=== PATIENT | male | born 1975 | race Caucasian/White ===

== ENCOUNTER 2016-12-25 22:23 | Emergency (ER) | payer SELFPAY ==
[2016-12-25 23:49] LABS: BASO % 0.6 % (0-6); EOS % 2.2 % (0-6); HEMATOCRIT 48.9 % (42.0-52.0); HEMOGLOBIN 16.4 gm/dl (14.0-18.0); LYMPH % 32.8 % (16-45); MEAN CELL VOLUME 87.3 fl (81-97); MEAN CORPUSCULAR HEMOGLOBIN 29.3 pg (27-33); MEAN CORPUSCULAR HGB CONC 33.5 g/dl (32-36); MONO % 9.4 % (0-9); PLATELET COUNT 244 K/uL (130-400); RED CELL DISTRIBUTION WIDTH 13.5 % (11.5-14.5); URINE APPEARANCE CLEAR; URINE BILIRUBIN NEGATIVE (NEGATIVE); URINE BLOOD NEGATIVE (NEGATIVE); URINE COLOR YELLOW; URINE GLUCOSE (UA) NEGATIVE (NEGATIVE); URINE KETONE NEGATIVE (NEGATIVE); URINE LEUKOCYTE ESTERASE NEGATIVE (NEGATIVE); URINE NITRITE NEGATIVE (NEGATIVE); URINE PROTEIN NEGATIVE (NEGATIVE); URINE UROBILINOGEN 0.2 E.U./dL (0.20 - 1.00); WHITE BLOOD COUNT W/O DIFF 6.9 K/uL (4.2-12.2)
[2016-12-25 23:56] LABS: AMPHETAMINE SCREEN URINE NOT DETECTED; BARBITURATE SCREEN URINE NOT DETECTED; BENZODIAZEPINE SCREEN URINE NOT DETECTED; COCAINE SCREEN URINE NOT DETECTED; METHADONE SCREEN URINE NOT DETECTED; METHAMPHETAMINE SCREEN NOT DETECTED; OPIATE SCREEN URINE DETECTED; OXYCODONE SCREEN URINE NOT DETECTED; PHENCYCLIDINE SCREEN URINE NOT DETECTED; PROPOXYPHENE SCREEN URINE NOT DETECTED; THC SCREEN URINE NOT DETECTED; TRICYCLIC ANTIDEPRESSANT SCRN NOT DETECTED
[2016-12-25 23:59] LABS: ANION GAP 18.7 (7-16); BLOOD UREA NITROGEN 9 mg/dL (9-20); CARBON DIOXIDE 20.3 mmol/L (22-30); CREATININE 0.8 mg/dL (0.66-1.25); EST GLOMERULAR FILTRATION RATE > 60 ml/min; GLUCOSE,RANDOM 99 mg/dL (70-110)
--- NOTE | 2016-12-26 00:58 | Emergency Department Record ---
History of Present Illness - General Chief Complaint: Headache Migraine Stated Complaint: HEADACHE Time Seen by Provider: 12/25/16 23:03 Source: Patient, Family Mode of Arrival: Ambulatory Limitations: No limitations - History of Present Illness Initial Comments: pt was brought in by because he has been having headaches and became depressed tonight after having an argument with his and drinking 12 beers. was concerned an convinced pt to come in. pt denies suicidality. MD Complaint: Headache Onset/Timin -: Week(s) Onset Description: Sudden Severity: Moderate Severity scale (1-10): 1 Quality: Other Consistency: Constant Improves With: Nothing Worsens With: None Context: Other Other Symptoms: Other Treatments Prior to Arrival: None - Related Data Home Medications Medication Instructions Recorded Confirmed Last Taken Gabapentin [Gabapentin] 300 mg PO QHS 12/25/16 12/25/16 Unknown Lamotrigine [Lamotrigine] 100 mg PO BID 12/25/16 12/25/16 Unknown Allergies Allergy/AdvReac Type Severity Reaction Status Date / Time cyclobenzaprine HCl Allergy HYPERSENSIT Verified 08/14/15 10:45 [From [employer]] [employer] Travel Screening - Travel/Exposure Within Last 30 Days Have you traveled within the last 30 days?: No - Travel/Exposure Within Last Year Have you traveled outside the [place] in the last year?: No - Additonal Travel Details Have you been exposed to anyone with a communicable illness?: No - Travel Symptoms Symptom Screening: None Review of Systems Reviewed: No additional complaints except as noted below Constitutional: Reports: As per HPI. Denies: Chills, Fever, Malaise, Night sweats, Weakness, Weight change Eyes: Reports: As per HPI. Denies: Eye discharge, Eye pain, Photophobia, Vision change ENT: Reports: As per HPI. Denies: Congestion, Dental pain, Ear pain, Epistaxis , Hearing loss, Throat pain Respiratory: Reports: As per HPI. Denies: Cough, Dyspnea, Hemoptysis, Stridor, Wheezes Cardiovascular: Reports: As per HPI. Denies: Arrhythmia, Chest pain, Dyspnea on exertion, Edema, Murmurs, Orthopnea, Palpitations, Paroxysmal nocturnal dyspnea, Rheumatic Fever, Syncope Endocrine: Reports: As per HPI. Denies: Fatigue, Heat or cold intolerance, Polydipsia, Polyuria Gastrointestinal: Reports: As per HPI. Denies: Abdominal pain, Constipation, Diarrhea, Hematemesis, Hematochezia, Melena, Nausea, Vomiting Genitourinary: Reports: As per HPI. Denies: Dysuria, Frequency, Hematuria, Incontinence, Retention, Testicular pain, Testicular mass, Urgency Musculoskeletal: Reports: As per HPI. Denies: Arthralgia, Back pain, Gout, Joint swelling, Myalgia, Neck pain Skin: Reports: As per HPI. Denies: Bruising, Change in color, Change in hair/ nails, Lesions, Pruritus, Rash Neurological: Reports: As per HPI. Denies: Abnormal gait, Confusion, Headache, Numbness, Paresthesias, Seizure, Tingling, Tremors, Vertigo, Weakness Psychiatric: Reports: As per HPI. Denies: Anxiety, Auditory hallucinations, Depression, Homicidal thoughts, Suicidal thoughts, Visual hallucinations Hematological/Lymphatic: Reports: As per HPI. Denies: Anemia, Blood Clots, Easy bleeding, Easy bruising, Swollen glands Past Medical History - SOCIAL HISTORY Smoking Status: Current every day smoker Alcohol Use: Heavy Alcohol Use Comment: 6pk/day Drug Use Detail:: Marijuana - RESPIRATORY Hx Respiratory Disorders: No - CARDIOVASCULAR Hx Cardio Disorders: No - NEURO Hx Seizures: Yes (newly diagnosed epilepsy last seizure 8 mos) - GI Hx GI Disorders: No - Hx Genitourinary Disorders: No - ENDOCRINE Hx Diabetes: No Hx Thyroid Disease: No - PSYCH Hx Anxiety: Yes Hx Behavior Problems: Yes Hx Depression: Yes Comment:: "Bipolar"&"I probably have ptsd too. I am a former gang member" - HEMATOLOGY/ONCOLOGY Hx Hematology/Oncology Disorders: No Family Medical History Any Significant Family History?: No Hx Diabetes: Grandparents Hx Stroke: Grandparents Physical Exam - General General Appearance: Alert, Oriented x3, Cooperative, Mild distress - Head Head exam: Normal inspection - Eye Eye exam: Normal appearance, PERRL, EOMI Pupils: Normal accommodation - ENT ENT exam: Normal exam, Mucous membranes moist, Normal external ear exam, Normal orophraynx, TM's normal bilaterally Ear exam: Normal external inspection. negative: External canal tenderness Nasal Exam: Normal inspection. negative: Discharge, Sinus tenderness Mouth exam: Normal external inspection, Tongue normal Teeth exam: Normal inspection. negative: Dental caries Throat exam: Normal inspection. negative: Tonsillar erythema, Tonsillar exudate - Neck Neck exam: Normal inspection, Full ROM. negative: Tenderness - Respiratory Respiratory exam: Normal lung sounds bilaterally. negative: Respiratory distress - Cardiovascular Cardiovascular Exam: Normal rhythm, Normal heart sounds, Tachycardia - GI/Abdominal GI/Abdominal exam: Soft, Normal bowel sounds. negative: Tenderness - Rectal Rectal exam: Deferred - exam: Deferred - Extremities Extremities exam: Normal inspection, Full ROM, Normal capillary refill. negative: Tenderness - Back Back exam: Reports: Normal inspection, Full ROM. Denies: Muscle spasm, Rash noted, Tenderness - Neurological Neurological exam: Alert, CN II-XII intact, Normal gait, Oriented X3 - Psychiatric Psychiatric exam: Normal affect, Normal mood - Skin Skin exam: Dry, Intact, Normal color, Warm Course Vital Signs 12/25/16 12/25/16 12/26/16 22:38 23:47 00:32 Temperature 98.5 F 98.6 F Pulse Rate 113 H Pulse Rate [ 96 H Pulse Ox Probe] Respiratory 20 20 Rate Blood Pressure 135/103 Blood Pressure 126/87 [Left Arm] Pulse Ox 96 94 L - Reevaluation(s) Reevaluation #1: 12/26/16 00:58 pt states he feels better. he denies ever being suicidal Medical Decision Making - Lab Data Result diagrams: 12/25/16 23:38 12/25/16 23:38 Lab Results 12/25/16 12/25/16 12/25/16 Range/Units 23:17 23:38 23:38 WBC 6.9 (4.2-12.2) K/uL RBC 5.60 (4.40-5.70) M/uL Hgb 16.4 (14.0-18.0) gm/dl Hct 48.9 (42.0-52.0) % MCV 87.3 (81-97) fl MCH 29.3 (27-33) pg MCHC 33.5 (32-36) g/dl RDW 13.5 (11.5-14.5) % Plt Count 244 (130-400) K/uL MPV 11.0 H (7.4-10.4) fl Gran % 55.0 (47-80) % Lymphocytes % 32.8 (16-45) % Monocytes % 9.4 H (0-9) % Eosinophils % 2.2 (0-6) % Basophils % 0.6 (0-6) % Sodium (136-145) mmol/L Potassium (3.5-5.1) mmol/L Chloride (98-107) mmol/L Carbon Dioxide (22-30) mmol/L Anion Gap (7-16) BUN (9-20) mg/dL Creatinine (0.66-1.25) mg/dL Estimated GFR ml/min Random Glucose (70-110) mg/dL Calcium (8.5-10.1) mg/dL TSH (0.465-4.68) uIU/ml Urine Color Yellow Urine Appearance Clear Urine pH 6.5 (5.0-8.0) Ur Specific [place] <= 1.005 (1.002-1.030) Urine Protein Negative (NEGATIVE) Urine Glucose (UA) Negative (NEGATIVE) Urine Ketones Negative (NEGATIVE) Urine Blood Negative (NEGATIVE) Urine Nitrite Negative (NEGATIVE) Urine Bilirubin Negative (NEGATIVE) Urine Urobilinogen 0.2 (0.20 - 1.00) E.U./dL Ur Leukocyte Esterase Negative (NEGATIVE) Urine Opiates Screen Ur Oxycodone Screen Urine Methadone Screen Ur Propoxyphene Screen Ur Barbituates Screen Ur Tricyclics Screen Ur Phencyclidine Scrn Ur Amphetamine Screen U Methamphetamines Scrn U Benzodiazepines Scrn Urine Cocaine Screen Urine Cannabis Screen Alcohol Specimen Type Cancelled Urine Alcohol Cancelled Ethyl Alcohol (0-0.010) g/dL 12/25/16 12/25/16 12/25/16 Range/Units 23:38 23:38 23:38 WBC (4.2-12.2) K/uL RBC (4.40-5.70) M/uL Hgb (14.0-18.0) gm/dl Hct (42.0-52.0) % MCV (81-97) fl MCH (27-33) pg MCHC (32-36) g/dl RDW (11.5-14.5) % Plt Count (130-400) K/uL MPV (7.4-10.4) fl Gran % (47-80) % Lymphocytes % (16-45) % Monocytes % (0-9) % Eosinophils % (0-6) % Basophils % (0-6) % Sodium 143 (136-145) mmol/L Potassium 3.6 (3.5-5.1) mmol/L Chloride 104 (98-107) mmol/L Carbon Dioxide 20.3 L (22-30) mmol/L Anion Gap 18.7 H (7-16) BUN 9 (9-20) mg/dL Creatinine 0.8 (0.66-1.25) mg/dL Estimated GFR > 60 ml/min Random Glucose 99 (70-110) mg/dL Calcium 9.2 (8.5-10.1) mg/dL TSH 4.40 (0.465-4.68) uIU/ml Urine Color Urine Appearance Urine pH (5.0-8.0) Ur Specific [place] (1.002-1.030) Urine Protein (NEGATIVE) Urine Glucose (UA) (NEGATIVE) Urine Ketones (NEGATIVE) Urine Blood (NEGATIVE) Urine Nitrite (NEGATIVE) Urine Bilirubin (NEGATIVE) Urine Urobilinogen (0.20 - 1.00) E.U./dL Ur Leukocyte Esterase (NEGATIVE) Urine Opiates Screen Detected Ur Oxycodone Screen Not detected Urine Methadone Screen Not detected Ur Propoxyphene Screen Not detected Ur Barbituates Screen Not detected Ur Tricyclics Screen Not detected Ur Phencyclidine Scrn Not detected Ur Amphetamine Screen Not detected U Methamphetamines Scrn Not detected U Benzodiazepines Scrn Not detected Urine Cocaine Screen Not detected Urine Cannabis Screen Not detected Alcohol Specimen Type Urine Alcohol Ethyl Alcohol 0.106 H (0-0.010) g/dL Disposition Disposition: Discharge Clinical Impression: Anxiety Headache Qualifiers: Headache type: unspecified Headache chronicity pattern: acute headache Intractability: not intractable Qualified Code(s): R51 - Headache Depression Qualifiers: Depression Type: unspecified Qualified Code(s): F32.9 - Major depressive disorder, single episode, unspecified Disposition: Home, Self-Care Condition: (1) Good Instructions: Acute Headache (ED), Anxiety (ED), Depression (ED) Additional Instructions: follow up with family doctor and with counseling. return sooner if worse Forms: Patient Portal Access
== END 2016-12-26 01:08 | disposition home or self-care (01) ==
LOC: ER 22:23
DX: R51 Headache (principal); F41.9 Anxiety disorder, unspecified; F32.9 Major depressive disorder, single episode, unspecified; G40.909 Epilepsy, unspecified, not intractable, without status epilepticus; Z79.899 Other long term (current) drug therapy
CPT/HCPCS: 70450; 80048; 80305; 80320; 81003; 84443; 85027; 99283; 99284

== ENCOUNTER 2017-02-26 08:43 | Emergency (ER) | payer SELFPAY ==
[2017-02-26] MEDS ORDERED: 0.9 % SODIUM CHLORIDE 1000ML 1,000 ML IV PRN (09:12)
--- NOTE | 2017-02-26 09:19 | Emergency Department Record ---
History of Present Illness - General Chief Complaint: Palpitations Stated Complaint: LEG CRAMPS/SOB Time Seen by Provider: 02/26/17 09:00 Source: Patient, RN notes reviewed Mode of Arrival: Ambulatory - History of Present Illness Initial Comments: SOB and tired and chest pain and symptoms on and off for 2 months and he states last time he used cocaine 5 years ago and he denies meth use and his teeth are very decayed. 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 Currently his legs feel better and no swelling and yesterday afternoon while working his legs were painful. Patient stopped drinking beer one month ago and he was drinking 6 beers per day. Onset/Timin -: Month(s) Context: Occurred during rest Associated Symptoms: Chest pain, Cough, Muscle cramps, Nausea/vomiting, Near- syncope, Shortness of breath - Related Data Home Medications Medication Instructions Recorded Confirmed Last Taken Lamotrigine [Lamotrigine] 100 mg PO BID 12/25/16 02/26/17 02/26/17 Allergies Allergy/AdvReac Type Severity Reaction Status Date / Time cyclobenzaprine HCl Allergy HYPERSENSIT Verified 02/26/17 08:59 [From [employer]] [employer] Travel Screening - Travel/Exposure Within Last 30 Days Have you traveled within the last 30 days?: No Review of Systems Reviewed: No additional complaints except as noted below Constitutional: Reports: As per HPI. Denies: Chills, Fever, Malaise, Night sweats, Weakness, Weight change Eyes: Reports: As per HPI. Denies: Eye discharge, Eye pain, Photophobia, Vision change ENT: Reports: As per HPI, Congestion. Denies: Dental pain, Ear pain, Epistaxis , Hearing loss, Throat pain Respiratory: Reports: As per HPI, Cough. Denies: Dyspnea, Hemoptysis, Stridor, Wheezes Cardiovascular: Reports: As per HPI, Chest pain. Denies: Arrhythmia, Dyspnea on exertion, Edema, Murmurs, Orthopnea, Palpitations, Paroxysmal nocturnal dyspnea, Rheumatic Fever, Syncope Endocrine: Reports: As per HPI. Denies: Fatigue, Heat or cold intolerance, Polydipsia, Polyuria Gastrointestinal: Reports: As per HPI. Denies: Abdominal pain, Constipation, Diarrhea, Hematemesis, Hematochezia, Melena, Nausea, Vomiting Genitourinary: Reports: As per HPI. Denies: Dysuria, Frequency, Hematuria, Incontinence, Retention, Testicular pain, Testicular mass, Urgency Musculoskeletal: Reports: As per HPI. Denies: Arthralgia, Back pain, Gout, Joint swelling, Myalgia, Neck pain Skin: Reports: As per HPI. Denies: Bruising, Change in color, Change in hair/ nails, Lesions, Pruritus, Rash Neurological: Reports: As per HPI. Denies: Abnormal gait, Confusion, Headache, Numbness, Paresthesias, Seizure, Tingling, Tremors, Vertigo, Weakness Psychiatric: Reports: As per HPI. Denies: Anxiety, Auditory hallucinations, Depression, Homicidal thoughts, Suicidal thoughts, Visual hallucinations Hematological/Lymphatic: Reports: As per HPI. Denies: Anemia, Blood Clots, Easy bleeding, Easy bruising, Swollen glands Past Medical History - SOCIAL HISTORY Smoking Status: Current every day smoker Alcohol Use: None Alcohol Use Comment: quit one month ago Drug Use: None - RESPIRATORY Hx Respiratory Disorders: No - CARDIOVASCULAR Hx Cardio Disorders: No - NEURO Hx Neuro Disorders: Yes Hx Seizures: Yes (epilepsy/couple times a year) - GI Hx GI Disorders: No - Hx Genitourinary Disorders: No - ENDOCRINE Hx Endocrine Disorders: No - MUSCULOSKELETAL Hx Musculoskeletal Disorders: Yes - PSYCH Hx Psych Problems: Yes Hx Anxiety: Yes Hx Behavior Problems: Yes Hx Depression: Yes Comment:: "Bipolar"&"I probably have ptsd too. I am a former gang member" - HEMATOLOGY/ONCOLOGY Hx Hematology/Oncology Disorders: No Family Medical History Any Significant Family History?: Yes Hx Diabetes: Grandparents Hx Stroke: Grandparents Physical Exam - General General Appearance: Alert, Oriented x3, Cooperative, No acute distress - Head Head exam: Normal inspection - Eye Eye exam: Normal appearance, PERRL Pupils: Normal accommodation - ENT ENT exam: Normal exam, Mucous membranes moist, Normal external ear exam, Normal orophraynx, TM's normal bilaterally Ear exam: Normal external inspection. negative: External canal tenderness Nasal Exam: Normal inspection. negative: Discharge, Sinus tenderness Mouth exam: Normal external inspection, Tongue normal Teeth exam: Normal inspection. negative: Dental caries Throat exam: Normal inspection. negative: Tonsillar erythema, Tonsillar exudate - Neck Neck exam: Normal inspection, Full ROM. negative: Tenderness - Respiratory Respiratory exam: Normal lung sounds bilaterally. negative: Respiratory distress - Cardiovascular Cardiovascular Exam: Regular rate, Normal rhythm, Normal heart sounds - GI/Abdominal GI/Abdominal exam: Soft, Normal bowel sounds. negative: Tenderness - Rectal Rectal exam: Deferred - exam: Deferred - Extremities Extremities exam: Normal inspection, Full ROM, Normal capillary refill. negative: Tenderness - Back Back exam: Reports: Normal inspection, Full ROM. Denies: Muscle spasm, Rash noted, Tenderness - Neurological Neurological exam: Alert, Normal gait, Oriented X3, Reflexes normal - Psychiatric Psychiatric exam: Normal affect, Normal mood - Skin Skin exam: Dry, Intact, Normal color, Warm Course Vital Signs 02/26/17 08:52 Temperature 97.7 F Pulse Rate 91 H Respiratory 20 Rate Blood Pressure 125/81 Pulse Ox 97 Medical Decision Making - Data Complexity MDM Data: Labs Ordered and/or Reviewed (neg labs), X-Ray Ordered and/or Reviewed (chest xray neg) - Lab Data Result diagrams: 02/26/17 09:00 02/26/17 09:00 Disposition Clinical Impression: Viral syndrome Fatigue Qualifiers: Fatigue type: unspecified Qualified Code(s): R53.83 - Other fatigue Disposition: Home, Self-Care Return To Work/School Note Provided: Yes Condition: (1) Good Instructions: Viral Syndrome (ED) Additional Instructions: follow up with family in one week stop cigs tylenol or motrin for pain Forms: Patient Portal Access Time of Disposition: 11:00
[2017-02-26] MEDS: ASPIRIN 81 MG CHEWABLE TABLET PO ONE (09:37)
[2017-02-26 09:54] LABS: BASO % 0.3 % (0-6); EOS % 1.2 % (0-6); GRAN % 72.8 % (47-80); HEMATOCRIT 48.1 % (42.0-52.0); HEMOGLOBIN 16.3 gm/dl (14.0-18.0); LYMPH % 18.9 % (16-45); MEAN CELL VOLUME 85.4 fl (81-97); MEAN CORPUSCULAR HGB CONC 33.9 g/dl (32-36); MEAN PLATELET VOLUME 11.7 fl (7.4-10.4); MONO % 6.8 % (0-9); PLATELET COUNT 245 K/uL (130-400); RED BLOOD COUNT 5.63 M/uL (4.40-5.70); RED CELL DISTRIBUTION WIDTH 13.2 % (11.5-14.5); WHITE BLOOD COUNT W/O DIFF 8.9 K/uL (4.2-12.2)
[2017-02-26 09:56] LABS: ANION GAP 12.3 (7-16); BLOOD UREA NITROGEN 14 mg/dL (9-20); CARBON DIOXIDE 26.7 mmol/L (22-30); EST GLOMERULAR FILTRATION RATE > 60 ml/min; GLUCOSE,RANDOM 99 mg/dL (70-110)
[2017-02-26 10:10] LABS: CKMB < 0.2 ug/L (0-6); TROPONIN I < 0.012 ng/mL (0.00-0.034)
[2017-02-26 10:19] LABS: AMPHETAMINE SCREEN URINE NOT DETECTED; BARBITURATE SCREEN URINE NOT DETECTED; BENZODIAZEPINE SCREEN URINE NOT DETECTED; COCAINE SCREEN URINE NOT DETECTED; METHADONE SCREEN URINE NOT DETECTED; METHAMPHETAMINE SCREEN NOT DETECTED; OPIATE SCREEN URINE NOT DETECTED; OXYCODONE SCREEN URINE NOT DETECTED; PHENCYCLIDINE SCREEN URINE NOT DETECTED; PROPOXYPHENE SCREEN URINE NOT DETECTED; THC SCREEN URINE NOT DETECTED; TRICYCLIC ANTIDEPRESSANT SCRN NOT DETECTED
[2017-02-26 10:21] LABS: URINE APPEARANCE CLEAR; URINE BILIRUBIN NEGATIVE (NEGATIVE); URINE BLOOD NEGATIVE (NEGATIVE); URINE COLOR YELLOW; URINE GLUCOSE (UA) NEGATIVE (NEGATIVE); URINE KETONE NEGATIVE (NEGATIVE); URINE LEUKOCYTE ESTERASE NEGATIVE (NEGATIVE); URINE NITRITE NEGATIVE (NEGATIVE); URINE PROTEIN NEGATIVE (NEGATIVE); URINE UROBILINOGEN 0.2 E.U./dL (0.20 - 1.00)
== END 2017-02-26 11:22 | disposition home or self-care (01) ==
LOC: ER 08:43
DX: B34.9 Viral infection, unspecified (principal); R53.83 Other fatigue; R25.2 Cramp and spasm; R00.2 Palpitations; R11.2 Nausea with vomiting, unspecified; R06.02 Shortness of breath; R07.9 Chest pain, unspecified; R05 Cough; F17.210 Nicotine dependence, cigarettes, uncomplicated

== ENCOUNTER 2017-12-01 15:54 | Emergency (ER) | payer SELFPAY ==
--- NOTE | 2017-12-01 16:01 | Emergency Department Record ---
History of Present Illness - General Chief Complaint: Chest Pain Stated Complaint: CHEST PAIN Time Seen by Provider: 12/01/17 15:59 Source: Patient Mode of Arrival: Wheelchair Limitations: No limitations - History of Present Illness Initial Comments: 42 yo male presents with a feeling of shortness of breath, chest heaviness, and fatigue that started at 8:30am today. The symptoms have persistent most of the day. He is a smoker. No history of CAD. He was evaluated for CP in April and had a stress test. No cough. No leg pain or edema. He reports since his April stress test that was normal he often feels short of breath, fatigued. MD Complaint: Chest pain Onset/Timin -: Hour(s) Onset: Awoke with symptoms Pain Location: Substernal, Epigastric Pain Radiation: None Severity: Mild Quality: Heaviness, Tightness Consistency: Constant Improves With: Nothing Worsens With: Nothing Treatments Prior to Arrival: None - Related Data Allergies Allergy/AdvReac Type Severity Reaction Status Date / Time cyclobenzaprine HCl Allergy HYPERSENSIT Verified 12/01/17 15:59 [From [employer]] [employer] Travel Screening - Travel/Exposure Within Last 30 Days Have you traveled within the last 30 days?: No Review of Systems Constitutional: Denies: Chills, Fever, Weakness Eyes: Denies: Eye discharge ENT: Denies: Congestion, Throat pain Respiratory: Reports: Dyspnea. Denies: Cough, Hemoptysis, Wheezes Cardiovascular: Reports: Chest pain. Denies: Palpitations, Syncope Endocrine: Reports: Fatigue. Denies: Polydipsia, Polyuria Gastrointestinal: Denies: Abdominal pain, Diarrhea, Nausea, Vomiting Genitourinary: Denies: Dysuria, Frequency, Hematuria Musculoskeletal: Denies: Arthralgia, Back pain, Joint swelling, Myalgia Skin: Denies: Bruising, Change in color, Rash Neurological: Denies: Headache, Numbness, Weakness Psychiatric: Denies: Anxiety Hematological/Lymphatic: Denies: Blood Clots, Easy bleeding, Easy bruising, Swollen glands Past Medical History - SOCIAL HISTORY Smoking Status: Current every day smoker Alcohol Use Comment: quit one month ago Drug Use: None - RESPIRATORY Hx Respiratory Disorders: No - CARDIOVASCULAR Hx Cardio Disorders: No - NEURO Hx Neuro Disorders: Yes Hx Seizures: Yes (epilepsy/couple times a year) - GI Hx GI Disorders: No - Hx Genitourinary Disorders: No - ENDOCRINE Hx Endocrine Disorders: No - MUSCULOSKELETAL Hx Musculoskeletal Disorders: Yes - PSYCH Hx Psych Problems: Yes Hx Anxiety: Yes Hx Behavior Problems: Yes Hx Depression: Yes Comment:: "Bipolar"&"I probably have ptsd too. I am a former gang member" - HEMATOLOGY/ONCOLOGY Hx Hematology/Oncology Disorders: No Family Medical History Hx Diabetes: Grandparents Hx Stroke: Grandparents Physical Exam - General General Appearance: Alert, Oriented x3, Cooperative, No acute distress Limitations: No limitations - Head Head exam: Normal inspection - Eye Eye exam: Normal appearance, PERRL. negative: Conjunctival injection, Scleral icterus - ENT ENT exam: Normal exam, Mucous membranes moist, Normal orophraynx Ear exam: Normal external inspection Nasal Exam: Normal inspection Mouth exam: Normal external inspection Teeth exam: Other (no teeth) Throat exam: Normal inspection. negative: Tonsillar erythema, Tonsillar exudate - Neck Neck exam: Normal inspection, Full ROM. negative: Tenderness - Respiratory Respiratory exam: Normal lung sounds bilaterally. negative: Accessory muscle use, Chest wall tenderness, Decreased breath sounds, Respiratory distress, Rhonchi, Stridor, Wheezes - Cardiovascular Cardiovascular Exam: Regular rate, Normal rhythm, Normal heart sounds. negative : Tachycardia Peripheral Pulses: 2+: Radial (R), Radial (L) - GI/Abdominal GI/Abdominal exam: Soft. negative: Tenderness - Rectal Rectal exam: Deferred - exam: Deferred - Extremities Extremities exam: Normal inspection, Full ROM, Normal capillary refill. negative: Calf tenderness, Joint swelling, Pedal edema, Tenderness - Back Back exam: Reports: Normal inspection, Full ROM. Denies: CVA tenderness (R), CVA tenderness (L), Muscle spasm, Paraspinal tenderness, Rash noted, Tenderness , Vertebral tenderness - Neurological Neurological exam: Alert, Normal gait, Oriented X3, Reflexes normal - Psychiatric Psychiatric exam: Normal affect, Normal mood - Skin Skin exam: Dry, Intact, Normal color, Warm Course Vital Signs 12/01/17 15:55 Temperature 98.5 F Pulse Rate 82 Respiratory 18 Rate Blood Pressure 128/80 Pulse Ox 99 - Reevaluation(s) Reevaluation #1: EKG NSR rate is 83, intervals normal, axis L, ST poor R wave progression, No acute changes. 12/01/17 16:00 12/01/17 17:11 No acute changes on the CBC or CMP 12/01/17 17:35 The troponin and D-dimer are negative 12/01/17 18:26 The patient was infomed of the results I recommended serial enzymes and a cardiology referral. He has seen Dr Valenzuela in the past. He states he is ready to go and will not stay for a second set of cardiac enzymes. I explained that a full work up is not complete. He understands stating her has been through this many times. He will accept the referral to see Dr Valenzuela again so a referral will be made. He accepts signing out AMA as I explained that process and that the work up is not complete. He understands the risks and still wishes to sign out AMA. Medical Decision Making - Lab Data Result diagrams: 12/01/17 16:00 12/01/17 16:00 Disposition Disposition: Discharge Clinical Impression: Left against medical advice Chest pain Qualifiers: Chest pain type: unspecified Qualified Code(s): R07.9 - Chest pain, unspecified Disposition: Home, Self-Care Condition: (1) Good Instructions: Chest Pain (ED), Against Medical Advice (ED) Additional Instructions: Return at any time to complete additional testing You are being referred for a return referral with Dr Valenzuela Take an aspirin daily Referrals: JOSEP VALENZUELA M.D. [MEDICAL DOCTOR] - [facility] [Provider Group] Forms: Patient Portal Access Time of Disposition: 18:33 Quality - Quality Measures Quality Measures: N/A - Blood Pressure Screening Does Patient Have Any of the Following: No Blood Pressure Classification: Pre-Hypertensive BP Reading Systolic Measurement: 128 Diastolic Measurement: 80 Screening for High Blood Pressure: < Pre-Hypertensive BP, F/U Documented > [ [id number]] Pre-Hypertensive Follow-up Interventions: Referral to alternative/primary care provider.
[2017-12-01] MEDS ORDERED: ASPIRIN 325 MG TABLET PO ONE (16:42)
[2017-12-01 16:51] LABS: BASO % 0.5 % (0-6); EOS % 2.3 % (0-6); GRAN % 61.7 % (47-80); HEMATOCRIT 44.6 % (42.0-52.0); LYMPH % 27.8 % (16-45); MEAN CELL VOLUME 83.8 fl (81-97); MEAN CORPUSCULAR HEMOGLOBIN 28.2 pg (27-33); MEAN CORPUSCULAR HGB CONC 33.6 g/dl (32-36); MEAN PLATELET VOLUME 11.4 fl (7.4-10.4); MONO % 7.7 % (0-9); PLATELET COUNT 242 K/uL (130-400); RED BLOOD COUNT 5.32 M/uL (4.40-5.70); RED CELL DISTRIBUTION WIDTH 13.6 % (11.5-14.5); WHITE BLOOD COUNT W/O DIFF 7.4 K/uL (4.2-12.2)
[2017-12-01 17:01] LABS: BLOOD UREA NITROGEN 11 mg/dL (6-20); CREATININE 0.8 mg/dL (0.7-1.2); EST GLOMERULAR FILTRATION RATE > 60 mL/min
[2017-12-01 17:02] LABS: TOTAL PROTEIN 7.1 g/dL (6.6-8.7)
[2017-12-01 17:05] LABS: GLUCOSE,RANDOM 87 mg/dL (74-109); INR 0.92; PROTHROMBIN TIME (PATIENT) 9.9 SECONDS (9.5-12.1)
[2017-12-01 17:07] LABS: ALB/GLOB RATIO 1.5 (1.1-1.8); ALBUMIN 4.3 g/dL (4.0-5.0); ALKALINE PHOSPHATASE 66 U/L (40-129); ALT/SGPT 17 U/L (<41); AST/SGOT 15 U/L (10.0-50.0); CREATINE PHOSPHOKINASE 53 U/L (39-308)
--- NOTE | 2017-12-03 10:09 | RADIOLOGY REPORT ---
DATE: 12/01/2017 at 5:56 p.m. EXAM: TWO-VIEW, CHEST. HISTORY: Chest pain and shortness of breath for a few days. TECHNIQUE: PA and lateral views. COMPARISON: Two-view, chest, dated 02/26/2017. FINDINGS: Heart size is normal. The lungs appear expanded with no acute infiltrate seen. No pleural effusion or pneumothorax evident. Minor apical pleural thickening bilaterally. IMPRESSION: MINOR APICAL PLEURAL THICKENING BILATERALLY. NO ACUTE INFILTRATE IDENTIFIED. JOB NUMBER: [id number] MTDD
== END 2017-12-01 18:45 | disposition home or self-care (01) ==
LOC: ER 15:54
DX: R07.9 Chest pain, unspecified (principal); R06.02 Shortness of breath; R53.83 Other fatigue; G40.909 Epilepsy, unspecified, not intractable, without status epilepticus; F17.210 Nicotine dependence, cigarettes, uncomplicated
CPT/HCPCS: 71046; 80053; 82550; 83880; 84484; 85025; 85379; 85610; 85730; 93005; 93010; 99284

== ENCOUNTER 2018-03-13 18:18 | Emergency (ER) | payer SELFPAY ==
[2018-03-13] MEDS ORDERED: 0.9 % SODIUM CHLORIDE 1,000 ML BAG IV ONE (18:59)
[2018-03-13 19:08] LABS: URINE APPEARANCE CLEAR; URINE BILIRUBIN NEGATIVE (NEGATIVE); URINE BLOOD NEGATIVE (NEGATIVE); URINE COLOR YELLOW; URINE GLUCOSE (UA) NEGATIVE (NEGATIVE); URINE KETONE NEGATIVE (NEGATIVE); URINE LEUKOCYTE ESTERASE NEGATIVE (NEGATIVE); URINE NITRITE NEGATIVE (NEGATIVE); URINE PROTEIN NEGATIVE (NEGATIVE); URINE UROBILINOGEN 0.2 E.U./dL (0.20 - 1.00)
[2018-03-13 19:09] LABS: BASO % 0.3 % (0-6); EOS % 1.7 % (0-6); GRAN % 59.6 % (47-80); HEMATOCRIT 46.1 % (42.0-52.0); HEMOGLOBIN 15.4 gm/dl (14.0-18.0); LYMPH % 27.8 % (16-45); MEAN CELL VOLUME 84.1 fl (81-97); MEAN CORPUSCULAR HEMOGLOBIN 28.1 pg (27-33); MEAN CORPUSCULAR HGB CONC 33.4 g/dl (32-36); MEAN PLATELET VOLUME 10.9 fl (7.4-10.4); MONO % 10.6 % (0-9); PLATELET COUNT 256 K/uL (130-400); RED BLOOD COUNT 5.48 M/uL (4.40-5.70); RED CELL DISTRIBUTION WIDTH 13.4 % (11.5-14.5); WHITE BLOOD COUNT W/O DIFF 7.7 K/uL (4.2-12.2)
[2018-03-13 19:37] LABS: CKMB 1.2 ng/mL (<6.73); CREATINE PHOSPHOKINASE 75 U/L (39-308)
[2018-03-13 19:39] LABS: BLOOD UREA NITROGEN 11 mg/dL (6-20); CREATININE 0.7 mg/dL (0.7-1.2); EST GLOMERULAR FILTRATION RATE > 60 mL/min; GLUCOSE,RANDOM 92 mg/dL (74-109)
[2018-03-13 19:40] LABS: ALB/GLOB RATIO 1.7 (1.1-1.8); ALBUMIN 4.6 g/dL (4.0-5.0); ALKALINE PHOSPHATASE 65 U/L (40-129); ALT/SGPT 18 U/L (<41); AST/SGOT 15 U/L (10.0-50.0); TOTAL PROTEIN 7.3 g/dL (6.6-8.7)
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
--- NOTE | 2018-03-14 23:23 | CT SCAN REPORT ---
EXAM: CT SCAN HEAD WO CONTRAST HISTORY: DIZZINESS. TECHNIQUE: CT brain without contrast. COMPARISON: 12/26/16 CT brain. FINDINGS: The globes are intact. Polyps in the maxillary sinuses bilaterally. No displaced or depressed skull fracture. No intra or extraaxial hemorrhage. CT limited for evaluation of acute infarct. No CT evidence for large or territorial acute infarct. No mass, mass effect, or midline shift. IMPRESSION: POLYPS OF THE MAXILLARY SINUSES. NO ACUTE INTRACRANIAL ABNORMALITY. JOB NUMBER: [id number] [facility]
--- NOTE | 2018-03-14 23:26 | RADIOLOGY REPORT ---
EXAM: CHEST 2 VIEWS HISTORY: CHEST PAIN. TECHNIQUE: Frontal and lateral views of the chest. COMPARISON: 02/26/17 chest. FINDINGS: The heart size is normal. The lungs are clear. No pneumothorax. IMPRESSION: NEGATIVE CHEST. JOB NUMBER: [id number] [facility]
== END 2018-03-13 20:54 | disposition home or self-care (01) ==
LOC: ER 18:18
DX: R00.2 Palpitations (principal); R53.1 Weakness; R42 Dizziness and giddiness; R07.9 Chest pain, unspecified; F17.210 Nicotine dependence, cigarettes, uncomplicated
CPT/HCPCS: 70450; 71046; 80053; 81003; 82550; 82553; 84443; 84484; 85025; 85379; 93225; 93226; 99284; J7030

== ENCOUNTER 2018-05-11 15:53 | Emergency (ER) | payer SELFPAY ==
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
== END 2018-05-11 16:21 | disposition home or self-care (01) ==
LOC: ER 15:53
DX: S33.5XXA Sprain of ligaments of lumbar spine, initial encounter (principal); S30.92XA Unspecified superficial injury of abdominal wall, initial encounter; X50.0XXA Overexertion from strenuous movement or load, initial encounter; F17.210 Nicotine dependence, cigarettes, uncomplicated
CPT/HCPCS: 99282

== ENCOUNTER 2019-02-04 13:34 | Emergency (ER) | payer SELFPAY ==
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
[2019-02-04] MEDS ORDERED: KETOROLAC 30 MG/ML VIAL IM ONE (14:03)
[2019-02-04 14:24] LABS: BASO % 0.6 % (0-6); EOS % 0.9 % (0-6); GRAN % 57.2 % (47-80); HEMATOCRIT 44.7 % (42.0-52.0); HEMOGLOBIN 14.8 gm/dl (14.0-18.0); LYMPH % 33.9 % (16-45); MEAN CORPUSCULAR HEMOGLOBIN 27.2 pg (27-33); MEAN CORPUSCULAR HGB CONC 33.1 g/dl (32-36); MEAN PLATELET VOLUME 10.7 fl (7.4-10.4); MONO % 7.4 % (0-9); PLATELET COUNT 278 K/uL (130-400); RED BLOOD COUNT 5.45 M/uL (4.40-5.70); RED CELL DISTRIBUTION WIDTH 13.7 % (11.5-14.5); WHITE BLOOD COUNT W/O DIFF 6.6 K/uL (4.2-12.2)
[2019-02-04 14:31] LABS: BLOOD UREA NITROGEN 13 mg/dL (6-20)
[2019-02-04 14:32] LABS: CREATININE 0.8 mg/dL (0.7-1.2); EST GLOMERULAR FILTRATION RATE > 60 mL/min
[2019-02-04 14:34] LABS: GLUCOSE,RANDOM 94 mg/dL (74-109)
[2019-02-04 14:44] LABS: URINE APPEARANCE CLEAR; URINE BILIRUBIN NEGATIVE (NEGATIVE); URINE BLOOD NEGATIVE (NEGATIVE); URINE COLOR YELLOW; URINE GLUCOSE (UA) NEGATIVE (NEGATIVE); URINE KETONE NEGATIVE (NEGATIVE); URINE LEUKOCYTE ESTERASE NEGATIVE (NEGATIVE); URINE NITRITE NEGATIVE (NEGATIVE); URINE PROTEIN NEGATIVE (NEGATIVE); URINE UROBILINOGEN 0.2 E.U./dL (0.20 - 1.00)
--- NOTE | 2019-02-05 13:29 | RADIOLOGY REPORT ---
EXAM: LUMBAR SPINE HISTORY: PROGRESSIVE LOWER BACK PAIN. TECHNIQUE: Two views of the lumbar spine were obtained. Comparison: None. FINDINGS: Five non-rib bearing lumbar type vertebral bodies are counted. The vertebral body heights are maintained. Intact alignment. Mild disk space height loss at L5-S1. Lower lumbar facet joint arthrosis. IMPRESSION: MILD DISK SPACE HEIGHT LOSS AT L5-S1 MAY REPRESENT UNDERLYING DISK DEGENERATION. JOB NUMBER: [id number] MTDD
== END 2019-02-04 15:24 | disposition home or self-care (01) ==
LOC: ER 13:34
DX: S33.5XXA Sprain of ligaments of lumbar spine, initial encounter (principal); R10.31 Right lower quadrant pain; X50.1XXA Overexertion from prolonged static or awkward postures, initial encounter; Y93.H3 Activity, building and construction; Y99.0 Civilian activity done for income or pay
CPT/HCPCS: 99283; 96372; 99284; 85025; 80048; 81003; 72100; J1885

== ENCOUNTER 2019-05-21 19:51 | Emergency (ER) | payer SELFPAY ==
[2019-05-21] MEDS ORDERED: ASPIRIN 81 MG CHEWABLE TABLET PO ONE (19:54)
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
[2019-05-21 20:23] LABS: ABSOLUTE NEUTROPHIL COUNT 3.44; BASO % 0.3 % (0-6); GRAN % 53.8 % (47-80); HEMATOCRIT 43.9 % (42.0-52.0); HEMOGLOBIN 14.5 gm/dl (14.0-18.0); LYMPH % 32.2 % (16-45); MEAN CELL VOLUME 83.6 fl (81-97); MEAN CORPUSCULAR HEMOGLOBIN 27.6 pg (27-33); MEAN PLATELET VOLUME 10.6 fl (7.4-10.4); MONO % 11.7 % (0-9); PLATELET COUNT 249 K/uL (130-400); RED BLOOD COUNT 5.25 M/uL (4.40-5.70); RED CELL DISTRIBUTION WIDTH 13.4 % (11.5-14.5); WHITE BLOOD COUNT W/O DIFF 6.4 K/uL (4.2-12.2)
[2019-05-21 20:36] LABS: BLOOD UREA NITROGEN 13 mg/dL (6-20); CREATININE 0.9 mg/dL (0.7-1.2); EST GLOMERULAR FILTRATION RATE > 60 mL/min
[2019-05-21 20:37] LABS: TOTAL PROTEIN 7.2 g/dL (6.6-8.7)
[2019-05-21 20:39] LABS: GLUCOSE,RANDOM 86 mg/dL (74-109)
[2019-05-21 20:41] LABS: ALB/GLOB RATIO 1.7 (1.1-1.8); ALBUMIN 4.5 g/dL (4.0-5.0); ALKALINE PHOSPHATASE 68 U/L (40-129); ALT/SGPT 26 U/L (<41); AST/SGOT 18 U/L (10.0-50.0)
== END 2019-05-21 23:34 | disposition home or self-care (01) ==
LOC: ER 19:51
DX: R07.89 Other chest pain (principal); Z87.891 Personal history of nicotine dependence
CPT/HCPCS: 80053; 84484; 85025; 93005; 93010; 99284

== ENCOUNTER 2019-05-28 16:10 | Emergency (ER) | payer SELFPAY ==
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
--- NOTE | 2019-05-31 09:46 | RADIOLOGY REPORT ---
EXAM: CHEST, TWO VIEWS HISTORY: COUGH. TECHNIQUE: PA and lateral views of the chest were obtained. Comparison: 03/13/18. FINDINGS: The cardiomediastinal silhouette is normal. The pulmonary vasculature is not congested. No focal consolidation, pleural effusion, or pneumothorax is seen. IMPRESSION: 1. NO EVIDENCE FOR PNEUMONIA OR PULMONARY EDEMA. 2. RESULT DISCUSSED WITH THE PATIENT'S EMERGENCY ROOM PROVIDER AT THE TIME OF INTERPRETATION. JOB NUMBER: [id number] MTDD
== END 2019-05-28 17:38 | disposition home or self-care (01) ==
LOC: ER 16:10
DX: J20.9 Acute bronchitis, unspecified (principal); R06.00 Dyspnea, unspecified; Z87.891 Personal history of nicotine dependence
CPT/HCPCS: 71046; 87880; 99283